=== PATIENT | male | born 1995 | race African-American/Black ===

== ENCOUNTER 2017-06-09 23:05 | Emergency (ER) | payer OTHER ==
[~2017-06-09 23:05] MED LIST: AUGM875T PO; PERM5CRE4 TOP; ULTR50TA PO
[2017-06-09 23:09] VITALS: BP 104/70; PULSE 58; RESP 16; TEMP 98.7; O2SAT 100
--- NOTE | 2017-06-10 00:13 | PD ---
HPI Chief Complaint: Laceration/Skin Injury Time Seen by Provider: 00:05 Travel History International Travel<30 days: No Contact w/Intl Traveler<30days: No Traveled to known affect area: No History of Present Illness HPI 21yo M with no PMH presents to the ED with c/o right eyebrow laceration s/p hitting his head into someone's knee while boxing today. States he was avoiding getting hit and hit the knee instead. Denies any LOC. States has pain where his laceration is. Denies any vomiting, visual changes, chest pain, sob, n/v, abdominal pain, focal weakness or numbness. PFSH Past Medical History Hx Anticoagulant Therapy: No Cardiovascular Problems: No Chemotherapy: No Cerebrovascular Accident: No Developmental Delay: No Diabetes: No Diminished Hearing: No Respiratory: No Immunizations Current: Yes Social History Alcohol Use: No Tobacco Use: Yes (Black and mild every so often) Substance Use: No Allergies-Medications (Allergen,Severity, Reaction): Coded Allergies: No Known Allergies (Verified , 09/10/16) Reported Meds & Prescriptions Reported Meds & Active Scripts Active No Active Prescriptions or Reported Medications Review of Systems Except as stated in HPI: all other systems reviewed are Neg Physical Exam Narrative GENERAL: 21yo M not in distress. SKIN: Focused skin assessment warm/dry. HEAD: +2 cm laceration under right eyebrow. EYES: Pupils equal and round at 4mm bilaterally. EOMI. No scleral icterus. No injection or drainage. ENT: No nasal bleeding or discharge. Mucous membranes pink and moist. No hemotympanum. No septal hematoma. NECK: No midline ttp. CARDIOVASCULAR: Regular rate and rhythm. No murmur appreciated. RESPIRATORY: No accessory muscle use. Clear to auscultation. Breath sounds equal bilaterally. GASTROINTESTINAL: Abdomen soft, non-tender, nondistended. No rebound tenderness or guarding. MUSCULOSKELETAL: No obvious deformities. No clubbing. No cyanosis. No edema. NEUROLOGICAL: Awake and alert. No obvious cranial nerve deficits. Motor grossly within normal limits. Normal speech. PSYCHIATRIC: Appropriate mood and affect; insight and judgment normal. Data Data Last Documented VS Vital Signs Date Time Temp Pulse Resp B/P (MAP) Pulse Ox O2 Delivery O2 Flow Rate FiO2 06/09/17 23:09 98.7 58 16 104/70 (81) 100 Room Air Orders Orders Lidocaine 1% Inj (50 Ml) (Xylocaine 1% I (06/10/17 00:15) Tetanus/Diphtheria Tox Adult (Tetanus/Di (06/10/17 00:45) MDM Medical Decision Making Medical Screen Exam Complete: Yes Emergency Medical Condition: Yes Differential Diagnosis Eyebrow laceration Narrative Course 21yo M with right eyebrow laceration s/p hitting it on someone's knee while boxing. Denies any LOC. No red flags. Imaging is not needed. Laceration repaired. Pt does not remember last tetanus so tetanus given. Return precautions given. Procedures Procedure Narrative LACERATION LOCATION: Right eyebrow LENGTH: 2cm NUMBER OF STITCHES/GUERLINE: 4 REPAIR: The area of the laceration was prepped with Betadine and sterilely draped. The laceration was infiltrated with 1cc of lidocaine. The wound was copiously irrigated and explored without evidence of foreign body, tendon injury or neurovascular injury. The wound was closed using 6-0 prolene. This was a single layer repair. A sterile dressing was applied. The patient was advised to keep the dressing clean and dry. Patient tolerated the procedure well. Diagnosis Primary Impression: Laceration of eyebrow Qualified Codes: S01.111A - Laceration without foreign body of right eyelid and periocular area, initial encounter Patient Instructions: General Instructions Departure Forms: Tests/Procedures Additional Instructions: Please have your sutures remove in 5 days in the emergency department or your primary care physician's office. Return to the ED if symptoms worsen. Med/Other Pt SpecificInfo: Prescription(s) given Scripts Acetaminophen (Tylenol) 325 Mg Tab 650 MG PO Q6H Y for PAIN SCALE 1 TO 4 for 5 Days, TAB 0 Refills Prov: Justyna Nieto DO 06/10/17 Disposition: 01 DISCHARGE HOME Condition: Stable Justyna Nieto DO Jun 10, 2017 00:13
[2017-06-10] MEDS ORDERED: LIDOCAINE HCL 1% 50 ML VIAL INFIL ONE (00:15)
[2017-06-10] MEDS ORDERED: TETANUS/DIPHTHERIA TOXOID ADULT 0.5 ML VIAL IM ONE (00:45)
[2017-06-10] MEDS ORDERED: TYLE325T PO (00:45)
== END 2017-06-10 01:19 | disposition home or self-care (01) ==
LOC: NEPD 23:05
DX: S01.111A Laceration without foreign body of right eyelid and periocular area, initial encounter (principal); W21.89XA Striking against or struck by other sports equipment, initial encounter; Y93.71 Activity, boxing; Z23 Encounter for immunization
CPT/HCPCS: 12011; 90471; 90714

== ENCOUNTER 2017-09-10 18:21 | Emergency (ER) | payer OTHER ==
[~2017-09-10] VITALS: Ht 172.7 cm; Wt 60.0 kg
[~2017-09-10 18:21] MED LIST changes: -AUGM875T PO; -PERM5CRE4 TOP; +TYLE325T PO; -ULTR50TA PO
[2017-09-10 18:23] VITALS: BP 113/75; PULSE 90; RESP 18; TEMP 98.1; O2SAT 98
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
== END 2017-09-10 18:56 | disposition left against medical advice (07) ==
LOC: NEPK 18:21
DX: M79.604 Pain in right leg (principal); M54.6 Pain in thoracic spine; F17.200 Nicotine dependence, unspecified, uncomplicated
CPT/HCPCS: 99281

== ENCOUNTER 2017-11-20 10:39 | Emergency (ER) | payer OTHER ==
[~2017-11-20] VITALS: Ht 170.2 cm; Wt 59.1 kg
[2017-11-20 10:41] VITALS: BP 119/69; PULSE 79; RESP 16; TEMP 98.4; O2SAT 99
[2017-11-20 11:29] LABS: AUTOMATED NEUTROPHIL # 2.2 TH/MM3 (1.8-7.7); BASOPHIL % 0.5 % (0.0-2.0); EOSINOPHIL % 0.9 % (0.0-4.0); HEMATOCRIT 42.7 % (39.0-51.0); HEMOGLOBIN 14.7 GM/DL (13.0-17.0); LYMPH % 38.9 % (9.0-44.0); LYMPHOCYTE # 1.6 TH/MM3 (1.0-4.8); MEAN CELL VOLUME 89.6 FL (80.0-100.0); MEAN CORPUSCULAR HEMOGLOBIN 30.9 PG (27.0-34.0); MEAN CORPUSCULAR HGB CONC 34.5 % (32.0-36.0); MEAN PLATELET VOLUME 7.6 FL (7.0-11.0); MONOCYTE # 0.3 TH/MM3 (0-0.9); NEUT % 52.7 % (16.0-70.0); PLATELET COUNT 272 TH/MM3 (150-450); RED BLOOD COUNT 4.76 MIL/MM3 (4.50-5.90); RED CELL DISTRIBUTION WIDTH 14.1 % (11.6-17.2); WHITE BLOOD COUNT 4.2 TH/MM3 (4.0-11.0)
[2017-11-20 11:54] LABS: ALBUMIN 4.1 GM/DL (3.4-5.0); ALT (GPT) 28 U/L (9-52); AST (GOT) 17 U/L (15-39); BLOOD UREA NITROGEN 13 MG/DL (7-18); CALCIUM 8.7 MG/DL (8.5-10.1); CHLORIDE 106 MEQ/L (98-107); CREATININE 0.78 MG/DL (0.60-1.30); GLOMERULAR FILTRATION RATE 154 ML/MIN (>89); GLUCOSE,RANDOM 85 MG/DL (74-106); SODIUM (NA) 140 MEQ/L (136-145)
[2017-11-20 11:56] LABS: ALKALINE PHOSPHATASE 78 U/L (45-117); TOTAL BILIRUBIN ADULT 0.5 MG/DL (0.2-1.0); TOTAL PROTEIN 8.2 GM/DL (6.4-8.2)
--- NOTE | 2017-11-20 12:07 | PD ---
HPI Chief Complaint: GI Complaint Time Seen by Provider: 11:53 Travel History International Travel<30 days: No Contact w/Intl Traveler<30days: No Traveled to known affect area: No History of Present Illness HPI 22-year-old male presents to the emergency Department with complaint of intermittent abdominal pain to his upper abdomen that radiates across from the left the right at times. Denies abdominal pain at this time. Says it causes him some pain that becomes short of breath. He reports nausea without vomiting. Reports no bowel movement for the last 2-3 days. Last bowel movement was normal. Denies dysuria, penile discharge, testicular pain. Denies history of abdominal surgeries. Denies illicit drug use. Reports occasional alcohol use. Reports tobacco use. Has not taken any medications or drainage from his to alleviate his symptoms. No known aggravating or relieving factors. No known allergies. No primary care provider. Denies significant past medical history. Has no other medical complaints. No other modifying factors or associated signs and symptoms. PFSH Past Medical History Medical History: Denies Significant Hx Hx Anticoagulant Therapy: No Cardiovascular Problems: No Chemotherapy: No Cerebrovascular Accident: No Developmental Delay: No Diabetes: No Diminished Hearing: No Respiratory: No Immunizations Current: Yes Past Surgical History Surgical History: No Previous Surgery Social History Alcohol Use: Yes Tobacco Use: Yes (Black and mild every so often) Substance Use: No Allergies-Medications (Allergen,Severity, Reaction): Coded Allergies: No Known Allergies (Verified Adverse Reaction, Unknown, 11/20/17) Reported Meds & Prescriptions Reported Meds & Active Scripts Active No Active Prescriptions or Reported Medications Review of Systems Except as stated in HPI: all other systems reviewed are Neg Physical Exam Narrative GENERAL: Well-nourished, well-developed black male patient, in no acute distress ; afebrile SKIN: Warm and dry. HEAD: Atraumatic. Normocephalic. EYES: Pupils equal and round. No scleral icterus. No injection or drainage. ENT: Mucosa pink and moist. Airway patent. NECK: Trachea midline. CARDIOVASCULAR: Regular rate and rhythm. No murmur appreciated. RESPIRATORY: No accessory muscle use. Clear to auscultation. Breath sounds equal bilaterally. GASTROINTESTINAL: Abdomen soft, nontender, nondistended; I am unable to elicit any tenderness on palpation of the abdomen. Hepatic and splenic margins not palpable. Bowel sounds are active 4 quadrants. Nonrigid. No rebound tenderness. No guarding. BACK: No CVA tenderness. MUSCULOSKELETAL: No obvious deformities. No clubbing. No cyanosis. No edema. NEUROLOGICAL: Awake and alert. Oriented 3. No obvious cranial nerve deficits. Motor grossly within normal limits. Normal speech. PSYCHIATRIC: Appropriate mood and affect; insight and judgment normal. Data Data Last Documented VS Vital Signs Date Time Temp Pulse Resp B/P (MAP) Pulse Ox O2 Delivery O2 Flow Rate FiO2 11/20/17 12:50 11/20/17 10:41 98.4 79 16 99 Room Air Orders Orders Complete Blood Count With Diff (11/20/17 11:05) Comprehensive Metabolic Panel (11/20/17 11:05) Lipase (11/20/17 11:05) Ed Discharge Order (11/20/17 12:21) Labs Laboratory Tests Test 11/20/17 11:10 White Blood Count 4.2 TH/MM3 Red Blood Count 4.76 MIL/MM3 Hemoglobin 14.7 GM/DL Hematocrit 42.7 % Mean Corpuscular Volume 89.6 FL Mean Corpuscular Hemoglobin 30.9 PG Mean Corpuscular Hemoglobin Concent 34.5 % Red Cell Distribution Width 14.1 % Platelet Count 272 TH/MM3 Mean Platelet Volume 7.6 FL Neutrophils (%) (Auto) 52.7 % Lymphocytes (%) (Auto) 38.9 % Monocytes (%) (Auto) 7.0 % Eosinophils (%) (Auto) 0.9 % Basophils (%) (Auto) 0.5 % Neutrophils # (Auto) 2.2 TH/MM3 Lymphocytes # (Auto) 1.6 TH/MM3 Monocytes # (Auto) 0.3 TH/MM3 Eosinophils # (Auto) 0.0 TH/MM3 Basophils # (Auto) 0.0 TH/MM3 CBC Comment DIFF FINAL Differential Comment Blood Urea Nitrogen 13 MG/DL Creatinine 0.78 MG/DL Random Glucose 85 MG/DL Total Protein 8.2 GM/DL Albumin 4.1 GM/DL Calcium Level 8.7 MG/DL Alkaline Phosphatase 78 U/L Aspartate Amino Transf (AST/SGOT) 17 U/L Alanine Aminotransferase (ALT/SGPT) 28 U/L Total Bilirubin 0.5 MG/DL Sodium Level 140 MEQ/L Potassium Level 4.0 MEQ/L Chloride Level 106 MEQ/L Carbon Dioxide Level 28.0 MEQ/L Anion Gap 6 MEQ/L Estimat Glomerular Filtration Rate 154 ML/MIN Lipase 142 U/L [facility] Medical Decision Making Medical Screen Exam Complete: Yes Emergency Medical Condition: Yes Medical Record Reviewed: Yes Differential Diagnosis Constipation, abdominal pain, medical clearance Narrative Course 22-year-old male with complaint of intermittent abdominal pain and does not have any abdominal pain at this time. I'm unable to elicit abdominal pain on physical exam. No CVA tenderness. She is afebrile and nontoxic-appearing. Denies fever, vomiting. Has not had a bowel movement for the past 2-3 days. I spoke with Dr. Knutson and he recommends MiraLAX and agrees with discharge. 1206: CBC and CMP unremarkable. Instructed patient to use MiraLAX. Instructed patient to follow up with primary care provider. Patient verbalizes understanding and agreement with treatment plan. Patient is medically cleared and stable for discharge. Discussed reasons to return to the emergency department. Patient agrees with treatment plan. The patients vital signs are stable and the patient is stable for outpatient follow-up and treatment. Patient discharged home, stable and in no acute distress. Diagnosis Primary Impression: Constipation Qualified Codes: K59.00 - Constipation, unspecified Additional Impression: History of abdominal pain Referrals: [facility] Primary Care Physician Patient Instructions: Abdominal Pain (ED), Constipation (ED), General Instructions Additional Instructions: [id number] MiraLAX 1 capful in the morning and 1 capful at night times one week Follow-up with primary care provider Return to emergency department immediately for worsening of symptoms Med/Other Pt SpecificInfo: No Change to Meds, No Meds Exist/No RX given Scripts No Active Prescriptions or Reported Meds Disposition: 01 DISCHARGE HOME Condition: Stable Sheryl Zafar Nov 20, 2017 12:07
== END 2017-11-20 12:50 | disposition home or self-care (01) ==
LOC: NEPD 10:39
DX: K59.00 Constipation, unspecified (principal); Z72.0 Tobacco use
CPT/HCPCS: 80053; 83690; 85025; 99283